=== PATIENT | female | born 1975 | race Caucasian/White ===

== ENCOUNTER 2017-10-31 20:22 | Emergency (ER) | payer SELFPAY ==
[2017-10-31] MEDS: HYDROCODONE/APAP (5/325) TAB PO (23:29)
== END 2017-11-01 01:08 | disposition home or self-care (01) ==
LOC: FTE 20:22
DX: S13.9XXA Sprain of joints and ligaments of unspecified parts of neck, initial encounter (principal); S80.02XA Contusion of left knee, initial encounter; W18.39XA Other fall on same level, initial encounter; Y92.9 Unspecified place or not applicable
CPT/HCPCS: 73562; 73562-50; 99284-25

== ENCOUNTER 2017-11-08 20:01 | Emergency (ER) | payer SELFPAY ==
[2017-11-08] MEDS: KETOROLAC 30 MG INJ IM (23:28)
== END 2017-11-09 01:24 | disposition home or self-care (01) ==
LOC: FTE 11-09 01:24
DX: M79.605 Pain in left leg (principal)
CPT/HCPCS: 29505; 72100; 73510; 96372; 99284-25